=== PATIENT | male | born 1975 | race Caucasian/White ===

== ENCOUNTER 2023-04-24 06:41 | Day surgery (SDC) | payer BC ==
[2023-04-24] MEDS ORDERED: fentaNYL 100 MCG/2 ML SDV ONE (07:20)
[2023-04-24] MEDS ORDERED: Propofol 200 MG/20 ML SDV ONE ×3 (07:20→09:09)
[2023-04-24] MEDS ORDERED: Midazolam 1 MG/ML 2 ML SDV ONE (07:21)
[2023-04-24] MEDS ORDERED: Lidocaine 1%/Sod Bicarbonate in NS 8.4% 1 ML Syringe IDERM PRN (07:40)
[2023-04-24] MEDS ORDERED: Sodium Chloride 0.9% 10 ML Syringe FLUSH PRN (07:40)
[2023-04-24] MEDS ORDERED: Lactated Ringers 1,000 ML IV SCH (07:45)
== END 2023-04-24 10:35 | disposition home or self-care (01) ==
LOC: JD.SDS 06:41
PROVIDERS: ATTEND Surgery
DX: Z12.11 Encounter for screening for malignant neoplasm of colon (principal); D12.3 Benign neoplasm of transverse colon; D12.4 Benign neoplasm of descending colon; K63.5 Polyp of colon; K63.89 Other specified diseases of intestine; K64.9 Unspecified hemorrhoids; G47.30 Sleep apnea, unspecified; F17.210 Nicotine dependence, cigarettes, uncomplicated; Z79.899 Other long term (current) drug therapy
CPT/HCPCS: 45380; 45381; J2250; J2704; J3010; J7120

== ENCOUNTER 2023-10-25 07:56 | Day surgery (SDC) | payer BC ==
[~2023-10-25 07:56] MED LIST: Lactated Ringers 1,000 ML IV SCH; Sodium Chloride 0.9% 10 ML Syringe FLUSH PRN; Sodium Chloride 0.9% 10 ML Syringe FLUSH SCH
[2023-10-25] MEDS ORDERED: dexmedeTOMIDine HCl 200 MCG/2 ML SDV ONE (08:35)
[2023-10-25] MEDS ORDERED: Propofol 200 MG/20 ML SDV ONE ×2 (08:58→08:59)
[2023-10-25] MEDS ORDERED: Lidocaine 1% 4 ML ONE (09:01)
== END 2023-10-25 11:15 | disposition home or self-care (01) ==
LOC: JD.SDS 07:56
PROVIDERS: ATTEND Surgery
DX: Z12.11 Encounter for screening for malignant neoplasm of colon (principal); D12.2 Benign neoplasm of ascending colon; D12.3 Benign neoplasm of transverse colon; F17.210 Nicotine dependence, cigarettes, uncomplicated
CPT/HCPCS: 00811; J2704; J3490; J7120